=== PATIENT | male | born 1965 | race Caucasian/White ===

== ENCOUNTER 2016-07-16 07:15 | Day surgery (SDC) | payer OTHER ==
[~2016-07-16] VITALS: Ht 177.8 cm; Wt 116.9 kg
[~2016-07-16 07:15] MED LIST: ATENOLOL/CHLORT1 TAB PO; BENAZEPRIL HCL10 MG PO; GABAPENTIN300 MG PO; GLIMEPIRIDE2 MG PO; LIPITOR80 MG PO; METFORMIN HCL1000 MG PO; MULTIPLE VITAMIN PO; OMEPRAZOLE20 M1 PO; OXYCODONE HCL5 MG PO; TESSALON PERLE100 MG; TRAZODONE HCL50 MG PO
[2016-07-16] MEDS ORDERED: NORCO1 TA1 PO (11:04)
--- NOTE | 2016-07-16 11:05 | Provider's Discharge Care Plan ---
Problem, Goal, Plan Problem List 1. S/P laparoscopic cholecystectomy 2. Liver cirrhosis
--- NOTE | 2016-07-16 11:05 | Provider's Discharge Care Plan ---
Problem, Goal, Plan Problem List 1. S/P laparoscopic cholecystectomy 2. Liver cirrhosis
--- NOTE | 2016-07-16 11:59 | OPERATIVE REPORT ---
DATE OF SURGERY: 07/16/2016 SURGEON: Giovanni Pires MD ENVIRONMENTAL ADVISOR: Randi Kumari III, MD PREOPERATIVE DIAGNOSIS: 1. Cholelithiasis with chronic cholecystitis POSTOPERATIVE DIAGNOSES: 1. Cholelithiasis with chronic cholecystitis 2. Advanced liver cirrhosis PROCEDURE PERFORMED: 1. Laparoscopic cholecystectomy with cholangiography ANESTHESIA: General. INDICATIONS: The patient is a 51-year-old man with right-sided abdominal pain and cholelithiasis. Ultrasound also demonstrated possible cirrhosis with splenomegaly, and the patient has a history of significant alcohol consumption and diabetes. SURGICAL TECHNIQUE: The patient was taken to the operating room, where a general anesthetic was administered and the patient prepped and draped in the usual sterile fashion. A local anesthetic of 0.5% Marcaine with epinephrine was used at each incision site. An intraumbilical incision was made and a Veress needle used to insufflate the abdominal cavity. A 10 mm cannula was passed, and visualization was obtained. This demonstrated significant micronodular cirrhosis of the liver, consistent with alcoholic cirrhosis. The hepatic vein was not dilated, but there was some increased capillary pattern on the peritoneum, suggesting dilated veins of Retzius. The gallbladder was elevated. It was found be somewhat embedded in the liver due to progression of cirrhosis. The neck of the cystic duct was taken down starting high up on the gallbladder and peeling things inferiorly. The cystic artery was isolated well up on the neck of the gallbladder and clipped and divided. The dissection was carried out, staying directly on the gallbladder mucosa, and once this came around it became clear that this was a very thin cystic duct that actually had torn off the neck of the gallbladder up high. This was found in the soft tissues, and 2 clips were placed on it and no attempt was made to do a cholangiogram. There was no sign of dilation of the common duct. The gallbladder was carefully stripped from the gallbladder fossa and delivered through the upper trocar site. The gallbladder bed was irrigated and complete hemostasis obtained, including application of epinephrine-containing local anesthetic. Note that at the very start of the procedure, a spring-loaded biopsy needle was inserted and used to take a core from the right lobe of the liver. Pressure was held at this site until hemostasis was complete, before starting the cholecystectomy. At the conclusion, a flat 10 mm silicone drain was placed, with the tip in the most dependent portion of the gallbladder to ensure against bile leakage and excessive drainage. It was brought out through the lateral 5 mm port and sutured to the skin with a 3-0 nylon suture and placed to bulb suction. Gas was evacuated, and the skin was closed with interrupted subcuticular 4-0 Vicryl suture and Steri-Strips. The patient left in stable condition, and no intraoperative complications were encountered.
[2016-07-16 14:22] VITALS: BP 138/62
== END 2016-07-16 15:00 | disposition home or self-care (01) ==
LOC: OR SRH 07:15 → SCU SRH 07:23 → OR SRH 09:30
PROVIDERS: Surgery
PROC: 0FB13ZX Excision of Right Lobe Liver, Percutaneous Approach, Diagnostic (ICD-10-PCS; principal; 2016-07-16 09:30)
PROC: BF131ZZ Fluoroscopy of Gallbladder and Bile Ducts using Low Osmolar Contrast (ICD-10-PCS; principal; 2016-07-16 09:30)
PROC: 0FT44ZZ Resection of Gallbladder, Percutaneous Endoscopic Approach (ICD-10-PCS; principal; 2016-07-16 09:30)
DX: K80.10 Calculus of gallbladder with chronic cholecystitis without obstruction (principal); K70.30 Alcoholic cirrhosis of liver without ascites; E11.9 Type 2 diabetes mellitus without complications; Z79.84 Long term (current) use of oral hypoglycemic drugs; I10 Essential (primary) hypertension; Z72.0 Tobacco use
CPT/HCPCS: 29240; 50002; 60001; 70002; 80102; 80212; 80248; 80813; 82794; 82807; 83339; 83348; 83421; 83587; 83920; 83937; 83982; 84038

== ENCOUNTER 2016-07-31 09:47 | Outpatient (CLI) | payer OTHER ==
[~2016-07-31 09:47] MED LIST changes: +NORCO1 TA1 PO
--- NOTE | 2016-07-31 10:47 | DIAGNOSTIC IMAGING REPORT ---
PROCEDURE: US ABDOMEN ULTRASOUND-LIMITED INDICATION: DRAINING POST OP WOUND, initial encounter TECHNIQUE: Aguirre scale and color Doppler sonographic images of the abdomen were obtained. COMPARISON: Abdominal ultrasound 05/25/2016 FINDINGS: The patient is status post lap cholecystectomy with drain in place. There is no evidence of focal fluid collection or ascites. Liver measures 22 cm with lobulated contour. Pancreas not well visualized. Cholecystectomy. CBD measures 5.8 mm. Visualized abdominal aorta is unremarkable. IVC is patent. Normal hepatopetal flow. Right kidney measures 12.5 cm with a 3.9 cm simple cyst in the mid pole. IMPRESSION: 1. Cholecystectomy 2. No evidence of focal fluid collection or ascites 3. Liver morphology suggestive of cirrhosis 4. Right renal cyst
== END 2016-07-31 23:00 ==
LOC: US SRH 09:47
DX: Z90.49 Acquired absence of other specified parts of digestive tract (principal); N28.1 Cyst of kidney, acquired